=== PATIENT | female | born 1960 | race Asian ===

== ENCOUNTER 2016-11-25 09:47 | Outpatient (CLI) | payer MEDICAID, OTHER | END 2016-11-25 09:48 | disposition home or self-care (01) | DX: E11.9 Type 2 diabetes mellitus without complications (principal) ==

== ENCOUNTER 2016-12-24 08:51 | Outpatient (CLI) | payer MEDICAID | END 2016-12-24 08:52 | disposition home or self-care (01) | DX: R60.0 Localized edema (principal); E78.5 Hyperlipidemia, unspecified ==

== ENCOUNTER 2017-01-09 10:29 | Outpatient (CLI) | payer MEDICAID | END 2017-01-09 10:30 | disposition home or self-care (01) | DX: R05 Cough (principal); I51.7 Cardiomegaly ==

== ENCOUNTER 2017-03-30 21:11 | Outpatient (CLI) | payer SELFPAY | END 2017-03-30 21:12 | disposition critical access hospital (66) | LOC: EMS 21:11 | PROVIDERS: ATTEND Surgery | DX: I46.9 Cardiac arrest, cause unspecified (principal) | CPT/HCPCS: A0425; A0433 ==

== ENCOUNTER 2017-03-30 21:25 | Emergency (ER) | payer SELFPAY ==
[2017-03-30 22:01] LABS: BASOPHILS % (AUTO) 1.2 %; EOSINOPHILS % (AUTO) 2.3 %; HGB - HEMOGLOBIN 12.6 g/dL (12.0-16.0); LYMPHOCYTES % (AUTO) 31.6 %; MEAN CORPUSCULAR HEMOGLOBIN 28.9 pg (27.0-31.0); MEAN CORPUSCULAR HGB CONC 29.3 g/dL (32.0-36.0); MEAN CORPUSCULAR VOLUME 98.5 fL (81.0-99.0); MEAN PLATELET VOLUME 9.8 fL (7.9-10.8); MONOCYTES % (AUTO) 3.4 %; NEUTROPHILS % (AUTO) 61.5 %; RED BLOOD COUNT 4.36 10^6/uL (4.20-5.40); RED CELL DISTRIBUTION WIDTH 13.9 % (12.0-15.0)
[2017-03-30 22:06] LABS: BILIRUBIN,URINE NEGATIVE (NEGATIVE); PH,URINE 7.5 PH (5.0-7.5)
[2017-03-30 22:10] LABS: UA w/ MICROSCOPIC CHARGE YES
[2017-03-30 22:15] LABS: UR CULTURE IF IND INDICATED
--- NOTE | 2017-03-30 22:17 | XRAY Preliminary Report ---
Exam: XR Chest 1 View IMPRESSION: 1. Moderate right-sided perihilar airspace disease. This is new from the prior exam. 2. Background of [id number] CHF. 3. Endotracheal tube tip projects 12 mm above the jacque. Recommend pulling the tube back 1 cm. [facility] SITE ID: [id number]
[2017-03-30 22:18] LABS: VBG BASE EXCESS -21.1 mmol/L (-2 - +2); VBG OXYGEN SATURATION 90.9 % (60-80); VBG PH 6.824 (7.31-7.41); VBG TOTAL CO2 17.7 mmol/L (24-29)
--- NOTE | 2017-03-30 22:19 | XRAY Report ---
EXAM: CHEST RADIOGRAPHY EXAM DATE: 03/30/2017 09:55 PM. CLINICAL HISTORY: Intubation COMPARISON: 01/09/2017. TECHNIQUE: 1 view. FINDINGS: Lungs/Pleura: A tiny aspect of the left lateral costophrenic sulcus region is not imaged on this exam . There is a medium-sized right-sided airspace disease. There is central pulmonary vascular congestio n. Mediastinum: Moderate enlargement of the cardiac silhouette. Other: Endotracheal tube tip projects 12 mm above the jacque. Recommend pulling the tube back 1 cm. T here is mild elevation of the right hemidiaphragm. No indirect evidence of a pneumothorax on this sup ine exposure. IMPRESSION: 1. Moderate right-sided perihilar airspace disease. This is new from the prior exam. 2. Background of [id number] CHF. 3. Endotracheal tube tip projects 12 mm above the jacque. Recommend pulling the tube back 1 cm. [facility] Referring Provider Line: [phone] SITE ID: [id number]
--- NOTE | 2017-03-30 22:26 | ED Physician Documentation ---
ED Addendum - Addendum Addendum: 03/30/17 22:[address] Anthony who was the attending of record with this critically ill patient, I performed both the intubation and central line placement. Procedure note: Intubation. No sedative agents were necessary. She was intubated using a Rikki #4 blade and a 7.52 which was cuffed to 23 cm at the lips. She was a technically difficult intubation because of blood and vomit in the airway and body habitus. I was actually unable to view the cords at all, but there was some spontaneous respiratory movement and I was able to pass the tube into the airway by aiming at the bubbles. Tube was confirmed by end-tidal CO2, bilateral breath sounds, and subsequently a chest x-ray. Tube was a little deep, asked RT to pull it back by 1 cm after the chest x-ray. Procedure note: Central line. Verbal consent was obtained from the son. Using full sterile prep including, mass, down, gloves, and full sheet real-time ultrasound guidance was used to access the left internal jugular vein and a 7 Moldovan central line was placed using Seldinger technique and sewn into place.
[2017-03-30 22:30] LABS: INR 1.3 (0.8-1.2); PT - PROTHROMBIN TIME 14.8 secs (9.9-12.6)
[2017-03-30 22:35] LABS: ALBUMIN/GLOBULIN RATIO 0.9 (1.0-2.2); BILIRUBIN,TOTAL 0.5 mg/dL (0.2-1.0); BUN - BLOOD UREA NITROGEN 23 mg/dL (6-20); CALCIUM 9.6 mg/dL (8.5-10.3); CARBON DIOXIDE - CO2 16 mmol/L (21-32); CHLORIDE 104 mmol/L (101-111); CREATININE 1.5 mg/dL (0.4-1.0); GFR - MDRD 36 (>89); LIPASE 82 U/L (22-51); MAGNESIUM 2.8 mg/dL (1.7-2.8); PHOSPHORUS 11.7 mg/dL (2.5-4.6); POTASSIUM 3.8 mmol/L (3.5-5.0); SODIUM 140 mmol/L (135-145); TOTAL PROTEIN 5.2 g/dL (6.7-8.2)
--- NOTE | 2017-03-30 22:38 | ED Physician Documentation ---
PD HPI CPR - Stated complaint Stated Complaint: CPR - Chief complaint Chief Complaint: Cardiac - History obtained from History obtained from: Family, EMS, Caregiver - History of Present Illness Timing - onset: How many hours ago (1) Preceding symptoms: Unknown Contributing factors: Diabetes Witnessed: Arrest not witnesssed Bystander CPR: Bystander CPR, Downtime before CPR (10-3-) EMS findings: Unresponsive, Apneic, PEA Treatment CRIME DATA SPECIALIST: CPR, Oxygen, Epi, Lidocaine, Atropine Advanced directive: No advanced directive, Full code - Additional information Additional information: Patient is a 56 year old female with a history of diabetes, chf, htn who was brought in for cardiac arrest. According to ems and family (son is a bail attacher) patient called and stated she wasn't feeling well. When the son went to check on her he found her apneic and cyanotic. He started cpr. downtime before cpr is anywhere from 10-30. ems was contacted and acls protocol was followed. patient was treated with atropine xs 2 4 epinepherine and lidocaine. No shocks were given. Intubation in the field was unsuccessful and a ivory tube was placed. Upon initial evaluation in the emergency department patient had pulse, was hypertensive and was oxygenating with the ivory tube in place with bilateral breath sounds. Review of Systems Unable to obtain: Unresponsive, Intubated PD PAST MEDICAL HISTORY - Past Medical History Past Medical History: Yes Cardiovascular: Congestive heart failure, Hypertension Neuro: CVA Endocrine/Autoimmune: Type 1 diabetes Other Past Medical History: pt son unsure of medical hx, states he thinks pt has hx htn, dm and chf. - Past Surgical History Past Surgical History: No - Present Medications Home Medications: Ambulatory Orders Medication Instructions Recorded Confirmed Home Medications Unobtainable 03/30/17 03/30/17 [HOME MEDICATIONS UNOBTAINABLE] - Allergies Allergies/Adverse Reactions: Allergies Allergy/AdvReac Type Severity Reaction Status Date / Time Unable to Assess Allergy Verified 03/30/17 21:38 - Social History Does the pt smoke?: No Smoking Status: Never smoker PD ED PE EXPANDED - General General: Disheveled, poorly kept, Unresponsive - HEENT HEENT: Other (pupils fixed, blood and food in the mouth and nares) - Cardiac Cardiac: Tachy, Radial strong equal, Pedal strong equal - Respiratory Respiratory: Other (course breath sounds bilaterally, but equal chest rise) - Abdomen Abdomen: Other (obese, mildly distended) - Neuro Neuro: Obtunded, Unresponsive - GCS Eye Opening: None Motor: None Verbal: None Total: 3 Results - Vitals Vitals: Vital Signs - 24 hr 03/30/17 03/30/17 03/30/17 21:31 21:50 22:03 Heart Rate 101 H 119 H 131 H Respiratory 16 24 Rate Blood Pressure 147/126 H 202/144 H 257/159 H O2 Saturation 97 99 97 03/30/17 03/30/17 22:23 22:49 Heart Rate 139 H 141 H Respiratory 28 H Rate Blood Pressure 216/160 H 206/152 H O2 Saturation 97 97 Oxygen O2 Source Ambu bag - EKG (time done) 2131 Rate: Rate (enter#) (101) Rhythm: Sinus tachycardia [place]: RAD Intervals: Normal VT, RBBB Ischemia: ST elevation c/w ischemia, ST depression Other comments: Other comments (elevation in avr, viand III, depression in V4-V6 ) Compare to prior EKG: Changed from prior EKG - Labs Labs: Laboratory Tests 03/30/17 03/30/17 03/30/17 21:37 21:37 21:37 WBC 26.0 H RBC 4.36 Hgb 12.6 Hct 43.0 MCV 98.5 MCH 28.9 MCHC 29.3 L RDW 13.9 Plt Count 141 MPV 9.8 Neut # PROPERTY PRESERVATION SPECIALIST Lymph # PROPERTY PRESERVATION SPECIALIST Guthrie # PROPERTY PRESERVATION SPECIALIST Eos # PROPERTY PRESERVATION SPECIALIST Baso # PROPERTY PRESERVATION SPECIALIST Absolute Nucleated RBC PROPERTY PRESERVATION SPECIALIST Total Counted 100 Band Neuts % (Manual) 17 H Reactive Lymphs % (Man) 1 Metamyelocytes % 1 H Neutrophils # (Manual) 14.8 H Lymphocytes # (Manual) 8.6 H Monocytes # (Manual) 1.6 H Eosinophils # (Manual) 0.8 H Nucleated RBCs PROPERTY PRESERVATION SPECIALIST Differential Comment MANUAL DIFFERENTIAL Platelet Estimate NORMAL (130-450,000) Platelet Morphology 1+ LARGE PLATELETS RBC Morph Micro Appear NORMAL APPEARANCE PT 14.8 H INR 1.3 H APTT 114.0 H* VBG pH VBG pCO2 VBG pO2 VBG HCO3 VBG Total CO2 VBG O2 Saturation VBG Base Excess Sodium 140 Potassium 3.8 Chloride 104 Carbon Dioxide 16 L Anion Gap 20.0 H BUN 23 H Creatinine 1.5 H Estimated GFR (MDRD) 36 L Glucose 612 H* Lactic Acid Calcium 9.6 Phosphorus 11.7 H Magnesium 2.8 Total Bilirubin 0.5 AST 218 H ALT < 10 L Alkaline Phosphatase 96 Troponin I B-Natriuretic Peptide Total Protein 5.2 L Albumin 2.5 L Globulin 2.7 Albumin/Globulin Ratio 0.9 L Lipase 82 H TSH Urine Color Urine Clarity Urine pH Ur Specific Taylor Urine Protein Urine Glucose (UA) Urine Ketones Urine Occult Blood Urine Nitrite Urine Bilirubin Urine Urobilinogen Ur Leukocyte Esterase Urine RBC Urine WBC Ur Epithelial Cells Ur Squamous Epith Cells Urine Bacteria Ur Microscopic Review Urine Culture Comments 03/30/17 03/30/17 03/30/17 21:37 21:37 21:37 WBC RBC Hgb Hct MCV MCH MCHC RDW Plt Count MPV Neut # Lymph # Guthrie # Eos # Baso # Absolute Nucleated RBC Total Counted Band Neuts % (Manual) Reactive Lymphs % (Man) Metamyelocytes % Neutrophils # (Manual) Lymphocytes # (Manual) Monocytes # (Manual) Eosinophils # (Manual) Nucleated RBCs Differential Comment Platelet Estimate Platelet Morphology RBC Morph Micro Appear PT INR APTT VBG pH VBG pCO2 VBG pO2 VBG HCO3 VBG Total CO2 VBG O2 Saturation VBG Base Excess Sodium Potassium Chloride Carbon Dioxide Anion Gap BUN Creatinine Estimated GFR (MDRD) Glucose Lactic Acid > 10.0 H* Calcium Phosphorus Magnesium Total Bilirubin AST ALT Alkaline Phosphatase Troponin I 0.27 B-Natriuretic Peptide 691 H Total Protein Albumin Globulin Albumin/Globulin Ratio Lipase TSH Urine Color Urine Clarity Urine pH Ur Specific Taylor Urine Protein Urine Glucose (UA) Urine Ketones Urine Occult Blood Urine Nitrite Urine Bilirubin Urine Urobilinogen Ur Leukocyte Esterase Urine RBC Urine WBC Ur Epithelial Cells Ur Squamous Epith Cells Urine Bacteria Ur Microscopic Review Urine Culture Comments 03/30/17 03/30/17 03/30/17 21:37 21:53 22:10 WBC RBC Hgb Hct MCV MCH MCHC RDW Plt Count MPV Neut # Lymph # Guthrie # Eos # Baso # Absolute Nucleated RBC Total Counted Band Neuts % (Manual) Reactive Lymphs % (Man) Metamyelocytes % Neutrophils # (Manual) Lymphocytes # (Manual) Monocytes # (Manual) Eosinophils # (Manual) Nucleated RBCs Differential Comment Platelet Estimate Platelet Morphology RBC Morph Micro Appear PT INR APTT VBG pH 6.824 L VBG pCO2 92.2 H VBG pO2 95.7 H VBG HCO3 14.8 L VBG Total CO2 17.7 L VBG O2 Saturation 90.9 H VBG Base Excess -21.1 L Sodium Potassium Chloride Carbon Dioxide Anion Gap BUN Creatinine Estimated GFR (MDRD) Glucose Lactic Acid Calcium Phosphorus Magnesium Total Bilirubin AST ALT Alkaline Phosphatase Troponin I B-Natriuretic Peptide Total Protein Albumin Globulin Albumin/Globulin Ratio Lipase TSH 16.70 H Urine Color COLORLESS Urine Clarity HAZY Urine pH 7.5 Ur Specific Taylor 1.020 Urine Protein >=300 H Urine Glucose (UA) 500 H Urine Ketones NEGATIVE Urine Occult Blood MODERATE H Urine Nitrite NEGATIVE Urine Bilirubin NEGATIVE Urine Urobilinogen 0.2 (NORMAL) Ur Leukocyte Esterase NEGATIVE Urine RBC TNTC H Urine WBC 11-25 H Ur Epithelial Cells MOD Renal Tubular H Ur Squamous Epith Cells FEW Squamous Urine Bacteria Few Ur Microscopic Review INDICATED Urine Culture Comments INDICATED - Rads (name of study) chest x-ray Radiology: Final report received (et tube 12mm from jacque, mild to moderate chf , right sided perihilar airspace disease), See rad report PD MEDICAL DECISION MAKING - ED course Complexity details: reviewed old records, reviewed results, re-evaluated patient , considered differential, d/w patient, d/w family, d/w business information consultant ED course: Patient was seen and examined at bedside immediately. IV access was established. patient was treated with calcium and bicarb. Patient did have a pulse and a blood pressure. ekg was performed which showed signs of severe ischemia. [facility] was immediately contacted and the ekg was faxed over. Patient was intubated by Dr. Viera (see seperate note). interventional cardiology refused the patient and stated that they would not take the patient to the microbiology lab assistant. there were no icu beds available there so multiple phone calls were made. eventually the case was discussed with Dr. Timmons at [facility] who accepted the transfer of the patient. Central line was also placed by Dr. Viera. Patient was chilled. Heparin was held due to patient's coagulopathy. Patient was air lifted out in critical condition. - Critical Care Time(min): 40 Time Includes: Direct patient care, Review records Data interpretation: Labs, Pulse ox, CXR, Cardiac output Departure - Departure Disposition: 02 Transfer Acute Care Hosp Clinical Impression: Cardiac arrest Condition: Critical Discharge Date/Time: 03/30/17 23:13
[2017-03-30 22:47] LABS: GLUCOSE 612 mg/dL (70-100)
[2017-03-30 22:50] VITALS: BP 206/152
[2017-03-30 22:50] LABS: BAND NEUTROPHILS % (MANUAL) 17 %; EOSINOPHILS % (MANUAL) 3 %; LYMPHOCYTES % (MANUAL) 32 %; NEUTROPHILS % (MANUAL) 40 %; TOTAL CELLS COUNTED 100
[2017-03-30 22:51] LABS: NP AUTO DIFFERENTIAL? YES
[2017-03-30 22:52] LABS: NP MAN DIFFERENTIAL? NO
[2017-03-30 22:53] LABS: PLATELET ESTIMATE, MANUAL NORMAL (130-450,000) (NORMAL); PLATELET MORPHOLOGY 1+ LARGE PLATELETS (NORMAL)
--- NOTE | 2017-03-30 22:53 | XRAY Preliminary Report ---
Exam: XR Chest for Line Placement IMPRESSION: 1. A left IJ central venous catheter has been placed with the tip projecting over the upper SVC. 2. No other significant change in the abnormal appearance of the chest since the prior exam. Please r efer to the report of the radiograph. [facility] SITE ID: [id number]
[2017-03-30] MEDS ORDERED: methylPREDNISolone SUCCINATE 125 MG/2 ML VIAL IVP ONE (22:54)
[2017-03-30] MEDS ORDERED: methylPREDNISolone SUCCINATE 125 MG/2 ML VIAL IVP STA (22:55)
--- NOTE | 2017-03-30 22:55 | XRAY Report ---
EXAM: CHEST RADIOGRAPHY EXAM DATE: 03/30/2017 10:32 PM. CLINICAL HISTORY: Central line placement COMPARISON: Exam earlier today at 2157 hrs.. TECHNIQUE: 1 view. FINDINGS/IMPRESSION: 1. A left IJ central venous catheter has been placed with the tip projecting over the upper SVC. 2. No other significant change in the abnormal appearance of the chest since the prior exam. Please r efer to the report of the radiograph. [facility] Referring Provider Line: [phone] SITE ID: [id number]
== END 2017-03-30 23:13 | disposition short-term general hospital (02) ==
LOC: EDBD → EDUNIT# → ED 21:25
DX: I46.9 Cardiac arrest, cause unspecified (principal); I45.2 Bifascicular block; R94.31 Abnormal electrocardiogram [ECG] [EKG]; E11.9 Type 2 diabetes mellitus without complications; I11.0 Hypertensive heart disease with heart failure; I50.9 Heart failure, unspecified; Z86.73 Personal history of transient ischemic attack (TIA), and cerebral infarction without residual deficits
CPT/HCPCS: 31500; 36415; 36569; 71010; 80053; 81001; 81003; 82803; 83605; 83690; 83735; 83880; 84100; 84443; 84484; 85025; 85610; 85730; 87086; 92950; 93005; 93010; 96374; 99284; 99291